=== PATIENT | male | born 1945 | race Caucasian/White ===

== ENCOUNTER → 2020-06-23 | Outpatient (CLI) | payer OTHER ==
[2015-12-15 12:57] VITALS: BP 122/58
[~2020-06-23] MED LIST: ASPIRIN E.C. 8181 MG PO; CHOLESTEROL MED; DHA PO; FUROSEMIDE20 MG; GLIPIZIDE10 M2; GLUCOPHAGE PO; GLUCOSAMINE CH1 EAC4 PO; IBU800 M1 PO; TYLENOL 500MG500 MG PO; TYLENOL PM EX-1 EACH PO; ULTRAM50 M1 PO; [UNRECOGNIZED DRUG - OTHER] PO
== END ==
LOC: LAB 09:17
DX: Z01.812 Encounter for preprocedural laboratory examination (principal); Z20.822 Contact with and (suspected) exposure to COVID-19

== ENCOUNTER 2022-02-09 10:58 | Outpatient (RCR) | payer OTHER | END 2022-03-10 | disposition home or self-care (01) | LOC: PT | DX: M17.11 Unilateral primary osteoarthritis, right knee (principal) ==